=== PATIENT | female | born 1995 | race Caucasian/White ===

== ENCOUNTER 2024-11-08 21:32 | Emergency (ER) | payer OTHER, SELFPAY ==
[~2024-11-08 21:32] MED LIST: Iopamidol 300 61% 100 ML VIAL FS ONE
[2024-11-08 21:56] LABS: #Basophils 0.13 10x3/uL (0.0-0.2); #Eosinophils 0.14 10x3/uL (0.0-0.5); #Monocytes 1.33 10x3/uL (0.0-1.1); #Neutrophils 10.97 10x3/uL (1.5-8.4); %Basophils 0.8 % (0.0-2.0); %Eosinophils 0.9 % (0.0-6.0); %Lymphocytes 18.4 % (18.0-47.0); %Monocytes 8.6 % (0.0-10.0); %Neutrophils 70.8 % (40.0-75.0); Hematocrit 41.4 % (34.9-44.5); Hemoglobin 14.7 g/dL (12.0-15.5); Mean Corpuscular Hemoglobin 30.6 pg (27.0-33.0); Mean Corpuscular Volume 86.1 fL (81.6-98.3); Platelet Count 439 10x3/uL (150-450); Red Blood Cell (RBC) Count 4.81 10x6/uL (3.90-5.03); White Blood Cell (WBC) Count 15.49 10x3/uL (3.5-10.5)
[2024-11-08] MEDS ORDERED: Ondansetron PF 4 MG/2 ML Vial ONE (21:57)
[2024-11-08] MEDS ORDERED: Ketorolac Tromethamine 30 MG (1 mL) VIAL ONE (21:58)
[2024-11-08 22:07] LABS: BHCG - Serum Negative (NEGATIVE); Pregs Control Background? CLEAR/WHITE (CLR/WHITE); Pregs Control Bar Appear? YES (CONTROL BAR)
[2024-11-08 22:11] LABS: ALT (SGPT) 37 U/L (Less than 34); AST (SGOT) 31 U/L (11-34); Albumin 4.8 g/dL (3.1-4.5); Alkaline Phosphatase 74 U/L (40-110); Anion Gap 17 mmol/L (10-20); BUN (Urea Nitrogen) 4 mg/dL (7.0-18.7); Bilirubin, Total 0.5 mg/dL (0.3-1.2); Calc. Creatinine Clearance 0 mL/min (70-130); Calcium 9.6 mg/dL (7.8-10.44); Carbon Dioxide 18 mmol/L (22-29); Chloride 103 mmol/L (98-107); Globulin 4.2 g/dL (2.4-3.5); Glucose 97 mg/dL (70-105); Lipase 7 U/L (8-78); Potassium 3.4 mmol/L (3.5-5.1); Sodium 135 mmol/L (136-145)
[2024-11-08 22:19] LABS: Glucose, Urine (Dipstick) Normal (Negative); Leukocyte Negative (Negative); Protein, Urine (Dipstick) 15 mg/dl (Neg-Trace); Specific Gravity, Urine 1.010 (1.005-1.030)
[2024-11-08 22:27] LABS: CAUTI Indications for Culture Pelvic or flank pain; RBC/HPF 0-3 HPF (0-3); WBC/HPF 0-3 HPF (0-3)
[2024-11-08 22:28] LABS: Bacteria/HPF Rare-Few HPF (None Seen); Urine Culture Reflex No No; Yeast-Budding Rare HPF (None Seen)
== END 2024-11-09 00:45 | disposition home or self-care (01) ==
LOC: CSHERS 21:32
DX: R11.2 Nausea with vomiting, unspecified (principal); Z55.6 Problems related to health literacy
CPT/HCPCS: 74177; 80053; 81001; 83605; 83690; 84703; 85025; 96374; 96375; J1885; J2405; Q9967